=== PATIENT | male | born 1970 | race Caucasian/White ===

== ENCOUNTER 2019-03-19 11:22 | Inpatient (IN) ==
--- NOTE | 2019-03-06 15:28 | PAT Medication Instructions ---
Medication Instructions Date of Service March 06, 2019 Home Medications omeprazole 20 mg PO BID Take morning of surgery With a small sip of water, OTHERWISE NOTHING TO EAT OR DRINK AFTER MIDNIGHT: omeprazole 20 mg PO BID Take evening before surgery omeprazole 20 mg PO BID Other Notes If you have any questions please call us at [phone] or [phone] or [phone] or [phone]
--- NOTE | 2019-03-07 11:03 | Anesthesiology Consultation ---
Date of Service March 07, 2019 Assessment & Plan (1) Encounter for pre-operative examination: Chart Review Chart Review: Acceptable Risk for Surgery and Patient seen in Pre Admission Testing Teaching & Discussion Instructed NPO after midnight before surgery, except medications with 15 cc of water. Medication instructions provided according to the PAT guidelines. History Surgery Operation Date: 03/19/19 10:35 Proposed Procedures p L5-S1 Revision Decompression, L5-S1 Instrumented Fusion with Spinal Cord Monitoring - Fred Palomino DO Height/Weight Height: 6 ft 5 in Weight: 116.2 kg Allergies Allergy/AdvReac Type Severity Reaction Status Date / Time No Known Allergies Allergy Verified 03/05/19 13:59 Medications Home Medications Medication Instructions Recorded Confirmed Last Taken omeprazole 20 mg PO BID 03/05/19 03/05/19 Unknown Past Medical History Medical History Degenerative disc disease GERD (gastroesophageal reflux disease) Hyperlipidemia ELEVATED IN THE PAST Exercise / Class Metabolic Activity II 4-5 Yardwork/Stairs/Walk up hill Past Family History Family History Other No significant family history Past Surgical History Surgical History History of arthroscopy RT KNEE X 2 History of laminectomy LUMBAR History of tooth extraction Past Anesthesia History No Hx of Anesthesia Complications and No Family Hx of Anesthesia Complications History of PONV No Hx of PONV and No Hx of Motion Sickness Social History Smoking Status: Current every day smoker tobacco type: cigarettes Smoking cigarettes per day: 3-4 CIG DAILY Do You Dip or Chew Tobacco: No Hx Alcohol Use: Yes Alcohol type: beer alcohol intake frequency: a few times a week Hx Substance Use: No substance use type: does not use Review of Systems Pt denies any recent chest pain, shortness of breath, palpitations, cough, fever or URI. Physical Exam Vital Signs BP: 131/75 P: 58bpm SPO2: 97% RA T: 98.0 F R: 12 ENMT Mouth: + chipped teeth (few chipped teeth); no dental restorations and no loose teeth Thyromental Distance: > or= 3.5 Finger Breadths (4) Mallampati Class: II Neck normal visual inspection; neck extension not limited Respiratory normal respiratory effort Auscultation: lungs clear to auscultation bilaterally Cardiovascular Rate/Rhythm: regular rhythm and + bradycardic Heart Sounds: no murmur Vessels: no carotid bruit Extremities: no edema Testing Laboratory Results 03/07/19 11:12 03/07/19 11:12 PT 10.2 Seconds (9.0-12.0) 03/07/19 11:12 INR 1.0 (0.9-1.1) 03/07/19 11:12 APTT 26.0 Seconds (21.0-31.0) 03/07/19 11:12 Urine Color Yellow 03/07/19 Unknown Urine Appearance Clear (Clear) 03/07/19 Unknown Urine pH 6.0 (4.5-7.5) 03/07/19 Unknown Ur Specific [place] 1.022 (1.000-1.030) 03/07/19 Unknown Urine Protein Negative (Negative) 03/07/19 Unknown Urine Glucose (UA) Negative (Negative) 03/07/19 Unknown Urine Ketones Negative (Negative) 03/07/19 Unknown Urine Nitrite Negative (Negative) 03/07/19 Unknown Ur Leukocyte Esterase Negative (Negative) 03/07/19 Unknown Blood Type A Positive 03/07/19 11:12 Antibody Screen NEGATIVE 03/07/19 11:12 Electrocardiogram Date: 03/07/19 Findings: + SB @ (57bpm) Chest X-Ray Date: 03/07/19 Findings: + NAD
--- NOTE | 2019-03-07 12:02 | XRay Report ---
XR chest Pre-admission PA/Lat HISTORY: Preop. COMPARISON: None. FINDINGS: The lungs are clear. Cardiac silhouette is normal in size. No pleural effusions. No pneumot horax. IMPRESSION: No acute process. Electronically signed by: Kavon Carter M.D. 03/07/2019 12:01 PM
[2019-03-07 12:09] LABS: Basophils # (auto) 0.04 K/uL (0-0.2); Basophils % (auto) 0.8 %; Eosinophils # (auto) 0.22 K/uL (0-0.5); Eosinophils % (auto) 4.2 %; Hematocrit (blood only) 44.8 % (42-52); Hemoglobin 15.7 g/dL (14.0-18.0); Lymphocytes # (auto) 1.57 K/uL (1.2-3.4); Lymphocytes % (auto) 30.1 %; Mean Platelet Volume 10.6 fL (7.4-10.4); Monocytes # (auto) 0.41 K/uL (0.11-0.59); Monocytes % (auto) 7.9 %; Neutrophils # (auto) 2.98 K/uL (1.4-6.5); Platelet Count 170 K/uL (130-400); RDW Coefficient of Variation 12.6 % (11.5-14.5); RDW Standard Deviation 40.9 fL (36.4-46.3); Red Blood Count 5.09 M/uL (4.7-6.1); White Blood Count 5.22 K/uL (4.8-10.8)
[2019-03-07 12:11] LABS: Appearance Urine Clear (Clear); Bilirubin Urine Negative (Negative); Blood Urine Negative (Negative); Color Urine Yellow; Glucose Urine UA Negative (Negative); Ketones Urine Negative (Negative); Leukocyte Esterase Urine Negative (Negative); Nitrite Urine Negative (Negative); Protein Urine Negative (Negative); Specific Gravity Urine 1.022 (1.000-1.030); Urobilinogen Urine Negative (Negative)
[2019-03-07 12:17] LABS: BUN Creatinine Ratio 16.3 (10-20); Calcium 9.3 mg/dl (8.5-10.1); Creatinine Clr Calc Pharmacy 100.7 ml/min; Est GFR (African American) 78.1; Est GFR (Non-African American) 67.4
[2019-03-07 12:24] LABS: Prothrombin Time 10.2 Seconds (9.0-12.0)
[~2019-03-19 11:22] MED LIST: ACETAMINOPHEN 500 MG TAB PO SCH; CEFAZOLIN 2000MG 2,000 MG/15 ML SYR IV SCH; CeleBREX 200 MG CAP PO SCH; GABAPENTIN 900 MG DOSE PO SCH; LR 15ML/HR IV SCH; dexAMETHasone 4 MG TAB PO SCH
[2019-03-19] MEDS ORDERED: LIDOCAINE HCL 2% 2 ML VIAL/AMP(20MG/ML) INFIL ONE (13:11)
[2019-03-19] MEDS ORDERED: GLYCOPYRROLATE 0.2 MG/ML VIAL ONE (13:11)
[2019-03-19] MEDS ORDERED: ONDANSETRON INJ 2 MG/ML 2 ML VIAL ONE (13:11)
[2019-03-19] MEDS ORDERED: DEXAMETHASONE SOD INJ 4 MG/ML VIAL ONE ×2 (13:11→14:08)
[2019-03-19] MEDS ORDERED: NEOSTIGMINE METHYLSULFATE 1 MG/ML 10ML VIAL ONE (13:11)
[2019-03-19] MEDS ORDERED: PROPOFOL IV EMULSION 10 MG/ML 20 ML VIAL IV ONE ×2 (13:11→14:01)
[2019-03-19] MEDS ORDERED: MIDAZOLAM HCL 1 MG/ML 2ML VIAL ONE (13:12)
[2019-03-19] MEDS ORDERED: fentaNYL citrate 100 MCG/2 ML VIAL ONE (13:12)
--- NOTE | 2019-03-19 13:22 | History & Physical Bridge Note ---
Date of Service March 19, 2019 History & Physical Bridge Note I have examined the patient, reviewed the History & Physical and in the interval since the performance of the History & Physical I have noted the following changes of clinical significance: no changes noted
--- NOTE | 2019-03-19 13:24 | History & Physical Report ---
Date of Service March 19, 2019 Assessment & Plan (1) Spinal stenosis, lumbar region with neurogenic claudication: Revision decompression L5-S1 instrumented fusion L5-S1 Present on Admission?: Yes History of Present Illness Chief Complaint: Back and left leg pain Primary Care Provider: Rain Lima PA-C This is a 48-year-old male that presents with chronic persistent back and left leg pain. After failing extensive course of nonoperative care he is here for surgical intervention. Allergies Allergy/AdvReac Type Severity Reaction Status Date / Time No Known Allergies Allergy Verified 03/19/19 11:46 Home Medications Home Medications Medication Instructions Recorded Confirmed Type omeprazole 20 mg PO BID 03/05/19 03/19/19 History Past Med/Surg History Medical History Degenerative disc disease GERD (gastroesophageal reflux disease) Hyperlipidemia ELEVATED IN THE PAST Surgical History History of arthroscopy RT KNEE X 2 History of laminectomy LUMBAR History of tooth extraction Family History Other No significant family history Social History Preferred Language: Luxembourgish Communication Ability: Effective [employer] Research Technician Required: No Beliefs That Will Affect Care: None Current Living Situation: Significant Other Other Information That Helps Us Care for You: No Feels Safe at Home: Yes Safety Concerns: Feels Safe At This Time Smoking Status: Current every day smoker Tobacco Type: cigarettes Cigarettes Per Day: 3-4 CIG DAILY Do You Dip or Chew Tobacco: No Second Hand Exposure: No Tobacco Cessation Education Requested by Patient: No Hx Alcohol Use: Yes Alcohol type: beer Hx Substance Use: No Physical Exam Physical Exam: Patient is alert and oriented neurologically intact. Results & Data Vital Signs (Past 12 Hours) Vital Signs Temp Pulse Resp BP Pulse Ox 03/19/19 11:47 36.4 C L 66 20 139/90 99
[2019-03-19] MEDS ORDERED: LABETALOL HCL IV 5 MG/ML 20ML IV PRN (13:33)
[2019-03-19] MEDS ORDERED: ATROPINE SULFATE 0.1 MG/ML 10ML SYR IV PRN (13:33)
[2019-03-19] MEDS ORDERED: HYDROmorphone INJ 1 MG/ML SYRINGE IV PRN (13:33)
[2019-03-19] MEDS ORDERED: ONDANSETRON INJ 2 MG/ML 2 ML VIAL IV PRN ×2 (13:33→16:36)
[2019-03-19] MEDS ORDERED: BUPIVACAINE/EPINEPHRINE 0.5% MPF 1:200,000 30 ML VIAL ONE (13:38)
[2019-03-19] MEDS ORDERED: BACITRACIN INJ 50,000 UNIT VIAL ONE (13:38)
[2019-03-19] MEDS ORDERED: ROCURONIUM BROMIDE 10 MG/ML 5 ML VIAL ONE (14:01)
[2019-03-19] MEDS ORDERED: SUCCINYLCHOLINE CHLORIDE 20 MG/ML 10 ML VIAL ONE (14:01)
[2019-03-19] MEDS ORDERED: HYDROmorphone INJ 2 MG/ML SYR/VIAL ONE (14:10)
[2019-03-19] MEDS ORDERED: FLOSEAL HEMOSTATIC MATRIX 10ML TOP ONE (14:28)
--- NOTE | 2019-03-19 15:34 | Operative Report ---
Post Operative Report Pre & Post Diagnosis Operation Date: 03/19/19 13:15 Pre-Op Diagnosis: Spinal stenosis, lumbar region with neurogenic claudication L5-S1 Post-Op Diagnosis: Spinal stenosis, lumbar region with neurogenic claudication L5-S1 Procedure Operation Date: 03/19/19 13:15 Actual Procedures #1 revision decompression with bilateral medial facetectomies foraminotomies L4- 5 L5-S1. #2 posterior spinal fusion L5-S1. #3 posterior posterior instrumentation L5-S1 per #4 interbody fusion L5-S1. #5 placement of titanium 10 x 26 mm cage L5-S1. #6 placement of local autograft in the posterior lateral gutters. #7 placement infuse collagen sponge combined with master graft in the posterior gutters and ostial amp and interbody space. Surgeon Fred Palomino, It Auditor Nataliia Swartz Estimated Blood Loss 150 Findings Consistent with Post-Op Diagnosis Specimens None Indications This is a 48-year-old male that presents with above-mentioned diagnosis after failing extensive course of nonoperative care is here for surgical intervention. Description of Procedure Patient was met with identified and informed consent obtained. He was then taken to the operative suite underwent intubation and placed in a prone position the Ten table on top of the Bryn frame. All bony prominences well-padded eyes inspected to ensure no external pressure placed upon the peer at this point the lumbar spine was prepped and draped in a normal sterile fashion. Sharp dissection with the assistance of Bovie cautery was performed down to and exposing the remaining lamina of L5 and the transverse processes of L5 and the sacral ala bilaterally. Then performed a revision complete laminectomy of L5 partial laminectomy of L4 including bilateral medial facetectomies foraminotomies to address subarticular stenosis. After this complete pedicle screws were placed in L5 and S1 levels bilaterally with assistance of fluoroscopy the process mariah placed. By way of a transforaminal approach and left complete discectomy was performed in plate graded to subcortical being bone and a 10 x 26 mm titanium cage filled with osteo-amp bone graft tapped in position. The rods were then locked in final position bilaterally. The transverse processes of L5 and S1 levels were then burred to subcortical bleeding bone. Infuse collagen sponge master graft local autograft placed in the posterior lateral gutters. 15 round MARITA drain inserted. The incision was then closed with 1 Vicryl fascia 2-0 Vicryl subcutaneous and 4-0 Monocryl for final skin closure. Steri-Strip sterile dressing placed. Patient will continue PACU stable disc. Please note Nataliia Swartz was present throughout the entire procedure involved in patient positioning closure. Lastly spinal cord monitoring was utilized that procedure no changes noted. I attest to the content of the Intraoperative Record and any orders documented therein. Any exceptions are noted below.
--- NOTE | 2019-03-19 15:37 | Fluoroscopy Report ---
FL lumbar spine 2-3V CLINICAL HISTORY: [id number] COMPARISON STUDY: None FLUOROSCOPY TIME: 28 seconds. NUMBER OF FLUOROSCOPIC IMAGES: 2 FINDINGS: 2 intraoperative fluoroscopic spot images reveal postsurgical changes at L5-S1 discectomy a nd interbody fusion with posterior pedicle screw fixation. IMPRESSION: Intraoperative fluoroscopic spot images demonstrating an L5-S1 discectomy and interbody fusion and posterior pedicle screw fixation Electronically signed by: Jessee Burciaga M.D. 03/19/2019 3:36 PM
--- NOTE | 2019-03-19 16:27 | Anesthesiology Progress Note ---
Date of Service March 19, 2019 Anesthesia Post Procedure Vital Signs Vital Signs: Temp Pulse Pulse Resp BP BP Pulse Ox 03/19/19 16:20 36.5 C 53 L 16 129/70 98 03/19/19 16:10 58 L 15 135/73 96 03/19/19 16:00 56 L 14 130/78 100 03/19/19 15:50 36.9 C 63 10 L 140/76 97 03/19/19 11:47 36.4 C L 66 20 139/90 99 Pain Intensity Lower Back: Pain Intensity: 2 Transfer of Care Handoff Completed per policy Notes Mental Status: alert / awake / arousable Patient Amnestic to Procedure: Yes Nausea / Vomiting: adequately controlled Pain: adequately controlled Airway Patency, RR, SpO2: stable & adequate BP & HR: stable & adequate Hydration State: stable & adequate Anesthetic Complications: no major complications apparent and Pt Satisfied with anesthetic care
[2019-03-19] MEDS ORDERED: PROMETHAZINE HCL 12.5 MG in SODIUM CHLORIDE 0.9% 50 ML IV PRN (16:36)
[2019-03-19] MEDS ORDERED: BISACODYL 10 MG SUPP PR PRN (16:36)
[2019-03-19] MEDS ORDERED: ALUMINUM/MAGNESIUM SUSP 30 ML UDC PO PRN (16:36)
[2019-03-19] MEDS ORDERED: HYDROmorphone INJ 0.5 MG/0.5 ML SYR IV PRN (16:36)
[2019-03-19] MEDS ORDERED: FAMOTIDINE 20 MG TAB PO PRN (16:36)
[2019-03-19] MEDS ORDERED: ACETAMINOPHEN 1,000 MG/100 ML VIAL IV PRN (16:36)
[2019-03-19] MEDS ORDERED: DO NOT ADMINISTER PNEUMOCOCCAL VACCINE PRN (16:36)
[2019-03-19] MEDS ORDERED: METOCLOPRAMIDE HCL INJ 5 MG/ML 2 ML VIAL IV PRN (16:36)
[2019-03-19] MEDS ORDERED: ONDANSETRON 4 MG TAB PO PRN (16:36)
[2019-03-19] MEDS ORDERED: SOD PHOSPHATE/SOD BIPHOSPHATE ENEMA 132 ML BTL PR PRN (16:36)
[2019-03-19] MEDS ORDERED: MAGNESIUM HYDROXIDE SUSP 30 ML UDC PO PRN (16:36)
[2019-03-19] MEDS ORDERED: DO NOT ADMINISTER FLU VACCINE PRN (16:36)
[2019-03-19] MEDS ORDERED: LORazepam 0.5 MG/1 ML VIAL IV PRN (16:36)
[2019-03-19] MEDS ORDERED: LORazepam 0.5 MG TAB PO PRN (16:36)
[2019-03-19] MEDS: LACTATED RINGER'S 1,000 ML IV SCH (20:38)
[2019-03-19] MEDS: PANTOprazole 40 MG TAB PO SCH (20:39)
[2019-03-19] MEDS: CEFAZOLIN 2000MG 2,000 MG/15 ML SYR IV SCH (20:39)
[2019-03-19] MEDS: DOCUSATE SODIUM/SENNA 50/8.6MG TAB PO SCH (20:39)
[2019-03-19] MEDS: OXYCODONE HCL IR 5 MG TAB (IMMEDIATE RELEASE) PO PRN (22:00)
[2019-03-20] MEDS: LACTATED RINGER'S 1,000 ML IV SCH (01:07)
[2019-03-20] MEDS: POLYETHYLENE (MIRALAX) 17 GM PACK PO SCH ×4 (05:41→23:20)
[2019-03-20] MEDS: CEFAZOLIN 2000MG 2,000 MG/15 ML SYR IV SCH (05:41)
[2019-03-20] MEDS: OXYCODONE HCL IR 5 MG TAB (IMMEDIATE RELEASE) PO PRN ×4 (05:56→23:00)
[2019-03-20 06:35] LABS: Hematocrit (blood only) 40.7 % (42-52); Hemoglobin 14.4 g/dL (14.0-18.0); Immature Granulocytes # (auto) 0.03 K/uL (0.00-0.02); Immature Granulocytes % (auto) 0.2 %; Lymphocytes # (auto) 0.62 K/uL (1.2-3.4); Lymphocytes % (auto) 4.5 %; Mean Corpuscular Hgb Conc 35.4 g/dL (32-36); Mean Corpuscular Volume 87.2 fL (80-100); Monocytes # (auto) 0.62 K/uL (0.11-0.59); Monocytes % (auto) 4.5 %; Neutrophils # (auto) 12.56 K/uL (1.4-6.5); Neutrophils % (auto) 90.8 %; Platelet Count 174 K/uL (130-400); RDW Coefficient of Variation 12.5 % (11.5-14.5); RDW Standard Deviation 40.2 fL (36.4-46.3); Red Blood Count 4.67 M/uL (4.7-6.1); White Blood Count 13.83 K/uL (4.8-10.8)
[2019-03-20 07:19] LABS: Calcium 8.8 mg/dl (8.5-10.1); Creatinine Clr Calc Pharmacy 97.3 ml/min; Est GFR (African American) 75.1; Est GFR (Non-African American) 64.8
--- NOTE | 2019-03-20 07:48 | Anesthesiology Progress Note ---
Date of Service March 20, 2019 Anesthesia Post Procedure Vital Signs Vital Signs: Temp Pulse Pulse Resp BP BP Pulse Ox 03/20/19 07:35 36.4 C L 75 18 141/70 H 98 03/20/19 03:10 36.6 C 73 18 128/67 96 03/19/19 23:20 36.6 C 69 18 142/74 H 96 03/19/19 21:58 36.5 C 03/19/19 19:33 36.3 C L 57 L 16 117/68 93 03/19/19 19:22 36.2 C L 03/19/19 18:45 36 C L 72 16 130/75 99 03/19/19 17:37 64 16 135/80 98 03/19/19 17:05 35.6 C L 60 18 131/79 98 03/19/19 16:35 36.4 C L 56 L 16 135/81 100 03/19/19 16:20 36.5 C 53 L 16 129/70 98 03/19/19 16:10 58 L 15 135/73 96 03/19/19 16:00 56 L 14 130/78 100 03/19/19 15:50 36.9 C 63 10 L 140/76 97 03/19/19 11:47 36.4 C L 66 20 139/90 99 Pain Intensity Lower Back: Pain Intensity: 7 Notes Mental Status: alert / awake / arousable and participated in evaluation Patient Amnestic to Procedure: Yes Nausea / Vomiting: adequately controlled Pain: adequately controlled Airway Patency, RR, SpO2: stable & adequate BP & HR: stable & adequate Hydration State: stable & adequate Anesthetic Complications: no major complications apparent and Pt Satisfied with anesthetic care
[2019-03-20] MEDS: PANTOprazole 40 MG TAB PO SCH ×2 (08:32→21:16)
--- NOTE | 2019-03-20 13:00 | Orthopedic Progress Note ---
Date of Service March 20, 2019 Assessment & Plan (1) Spinal stenosis, lumbar region with neurogenic claudication: Patient will continue with physical therapy will advance his bowel regiment monitor his MARITA output anticipate discharge home in the next few days. Present on Admission?: Yes Subjective Back pain is controlled left leg symptoms markedly improved. Physical Exam Physical Exam: Patient is sitting in the chair at the bedside is good strength testing. Appears comfortable. Results & Data Vital Signs (Past 12 Hours) Vital Signs Temp Pulse Resp BP Pulse Ox 03/20/19 11:57 36.4 C L 76 18 125/68 96 03/20/19 07:35 36.4 C L 75 18 141/70 H 98 03/20/19 03:10 36.6 C 73 18 128/67 96
[2019-03-20] MEDS: DOCUSATE SODIUM/SENNA 50/8.6MG TAB PO SCH (21:16)
[2019-03-21] MEDS: ACETAMINOPHEN 500 MG TAB PO PRN ×2 (02:49→11:20)
[2019-03-21] MEDS: OXYCODONE HCL IR 5 MG TAB (IMMEDIATE RELEASE) PO PRN ×5 (02:50→20:41)
[2019-03-21] MEDS: POLYETHYLENE (MIRALAX) 17 GM PACK PO SCH ×4 (05:31→23:16)
[2019-03-21] MEDS: PANTOprazole 40 MG TAB PO SCH ×2 (07:27→20:42)
--- NOTE | 2019-03-21 12:04 | Orthopedic Progress Note ---
Date of Service March 21, 2019 Assessment & Plan (1) Spinal stenosis, lumbar region with neurogenic claudication: This time we will continue physical therapy monitor his MARITA output anticipate discharge home tomorrow. Present on Admission?: Yes Subjective Back pain is controlled leg pain markedly improved. Physical Exam Physical Exam: Patient has good strength testing appears comfortable. Results & Data Vital Signs (Past 12 Hours) Vital Signs Temp Pulse Pulse Resp BP Pulse Ox 03/21/19 07:50 36.6 C 84 14 106/66 98 03/21/19 06:39 36.6 C 69 18 127/71 98
[2019-03-21] MEDS: TRAMADOL HCL 50 MG TABLET PO PRN ×2 (16:19→20:41)
[2019-03-21] MEDS: DOCUSATE SODIUM/SENNA 50/8.6MG TAB PO SCH (20:42)
[2019-03-22] MEDS: POLYETHYLENE (MIRALAX) 17 GM PACK PO SCH (05:38)
[2019-03-22] MEDS: TRAMADOL HCL 50 MG TABLET PO PRN ×2 (05:41→10:50)
[2019-03-22] MEDS: OXYCODONE HCL IR 5 MG TAB (IMMEDIATE RELEASE) PO PRN ×2 (05:44→10:50)
[2019-03-22] MEDS: PANTOprazole 40 MG TAB PO SCH (07:32)
--- NOTE | 2019-03-22 12:25 | Discharge Summary ---
Date of Service March 22, 2019 Admission HPI Per Admitting Provider This is a 48-year-old male that presents with chronic persistent back and left leg pain. After failing extensive course of nonoperative care he is here for surgical intervention. Principal Diagnosis Lumbar spinal stenosis with radiculopathy Discharge Data Allergies Allergy/AdvReac Type Severity Reaction Status Date / Time No Known Allergies Allergy Verified 03/19/19 11:46 Consultations 03/19/19 16:36 Consult Case Management - Discharge Planning Routine Procedures Performed Operation Date: 03/19/19 13:15 Actual Procedures p L5-S1 Revision Decompression, L5-S1 Instrumented Fusion with Interbody Fusion, Bone Morphogenetic Protein, OsteoAmp Allograft and Spinal Cord Monitoring(Not Applicable) - Fred Palomino DO Ordered Studies 03/19/19 13:15 FL fluoroscopy <1hr Routine [place] lumbar spine 2-3V Routine Hospital Course (1) Spinal stenosis, lumbar region with neurogenic claudication: Patient underwent lumbar decompression fusion tolerated as well as taken to orthopedic for postoperative. Postop day and when he was up and ambulating leg pain improved progressive postop day #2 postop day #3 MARITA drain decreased probably pain well controlled subsequently discharged home. Discharge orders and instructions from the chart for further review. Total Time Total Time Spent Total Time Spent (In Minutes): 20 minutes Discharge Plan Discharge Items Patient Disposition: Home - Self-Care Reason For Visit: LUMBER OTHER INTERVERTEBRAL DISC DISPLACMENT Discharge Diagnosis: Lumbar spinal stenosis with neurogenic claudication Discharge Goals: Decrease discomfort Activity: Per 'Additional Instructions' section Non-emergency contact: Primary Care Provider Call non-emergency contact if: you have any medication questions Follow-up/Referrals: Rain Lima PA-C [Primary Care Provider] - Diet: Regular Addtl Provider Instructions: ACTIVITY RECOMMENDATIONS: SELF CARE INSTRUCTIONS AFTER THORACIC/LUMBAR FUSIONS 1. You may walk to your tolerance. It is good exercise for your legs and back. Expect some back and intermittent leg aches and pains. 2. You may perform "counter-top" level activities (make a sandwich, addison with a project, etc.). 3. No bending or lifting of more than 10 pounds or back twisting of any nature (roll like a log when turning in bed). 4. You may ride in a car for 20-30 minutes at a time. No driving until after your first visit with your doctor. 5. Frequent changes of position and restricting sitting to 30 minutes at a time will help limit the amount of back spasms and stiffness you may experience. 6. You may discontinue the use of ambulatory aids (cane, crutches, etc.) once your strength and confidence allow. 7. You may cryogenics engineer the shower and let water strike your incision when you arrive home at least once daily. Do not take a tub bath, sit in a hot tub or go into a swimming pool until after your first recheck in the office. SPECIAL CARE INSTRUCTIONS: VERY IMPORTANT TO READ AND REVIEW A. Your surgical incision has been closed with a cosmetic suture under the skin that will dissolve in about 6 weeks. In 14 days, you can use a pair of clean scissors and cut the suture that is left outside of the skin at the ends of your incision. 1. The small skin tapes can be removed 7 days after surgery if they have not fallen off by that point. 2. You may keep the wound open to air as much as possible to promote healing after post-op day number 5 unless told otherwise by your doctor. 3. If you think the wound looks like it is becoming infected (redness or worsening drainage) and/or you are experiencing fever, chill or worsening back pain and muscle spasms, contact the office so that we may evaluate you as soon as possible. B. Complications are uncommon, but please contact us if you have any signs or symptoms of: 1. wound infection (fever higher than 102.5 degrees F, redness, separation of wound, drainage, or increasing pain from the incision) 2. blood clots in legs (pain, swelling, redness and warmth in legs) 3. urinary tract infection (fever higher than 102.5 degrees F, burning upon urination or increased frequency of urination) 4. nerve problems (inability to walk on your toes or heels, numbness, loss of bowel or bladder control) 5. any other symptoms that concern you C. Please call the office at if you have any concerns or questions about your operation or recovery. D. No smoking! Smoking drastically decreases the chance of a solid fusion. E. Do not take any anti-inflammatory medications (Indocin, Advil, Motrin, Aspirin, Naprosyn, etc.) as these may inhibit the chance of a solid fusion. Tylenol is okay to take for pain. MANAGING PAIN AFTER SPINAL SURGERY 1. Narcotic medication is intended for short-term use and will be provided for surgical pain. Surgical pain usually lasts for a period of 4-6 weeks. Narcotic medication includes Percocet, Vicodin, Darvocet, Tylenol #3 or Lortab. 2. Longer-term pain is more appropriately treated with non-narcotic medication such as Tylenol ES. 3. Muscle spasm is not appropriately treated with narcotics. Muscle relaxers such as Soma, Flexeril or Skelaxin can be used along with Tylenol ES. 4. Remember that we all live with some "aches and pains". This is not unusual or uncommon after an injury or as we get older. a. Back pain is expected and may include muscle spasms for 4 to 6 weeks after surgery. The pain should gradually improve. If the pain worsens for no apparent reason, please contact the office. b. Intermittent leg pain may also be experienced and should not be concerned about unless it worsens for no apparent reason. If so, please contact the office. 5. We will provide appropriate medication within the normal guidelines of their prescribed use. We will also be very cautious and aware of potential abuse and extended duration of patients' medication needs. a. Pain medications are for your comfort and to assist with sleep and rest so that the tissue can heal. They are not provided in order to return to normal activity and should not be used through the day. To do so or worsening pain at night can result from ongoing tissue damage and development of tolerance to the prescribed medicine. 6. Please allow 2-3 days to process refills. Prescriptions will not be mailed but must be picked up at the office. FOLLOW UP VISIT: Keep your scheduled follow-up appointment. Any questions, please call the office at . Prescriptions: New tramadol 50 mg Tablet 50 mg PO Q4H PRN (Reason: Pain, Moderate) Qty: 30 RF: 0 oxycodone 5 mg Tablet 5 mg PO Q4H PRN (Reason: Pain, Severe) Qty: 30 RF: 0 Continued omeprazole 20 mg Tablet,Delayed Release (Dr/Ec) 20 mg PO BID RF: 0 Stand-Alone Forms: [facility]/Other Patient Handouts: Surgery Prevent DVT After Discharge Orders: Discharge Order (Routine); Ordered 03/22/19 Ordered By: Fred Palomino Admission Data Admit Date/Time: 03/19/19 15:38 Attending Provider: Fred Palomino Admit Provider: Fred Palomino Primary Care Provider: Rain Lima Service: Surgical Services Other Interventions: Discharge Summary Assessment (RN) Last Done: 03/22/19 11:16 DC Date/Time DO NOT enter until pt leaves facility: 03/22/19 11:43
== END 2019-03-22 11:43 | disposition home or self-care (01) | DRG 455 ==
LOC: ASU 11:22 → 3E 15:38